=== PATIENT | male | born 1945 | race Caucasian/White ===

== ENCOUNTER 2016-07-22 09:02 | Inpatient (IN) | payer OTHER ==
[2016-07-19 16:28] LABS: Urine RBC None Seen /hpf (0 - 3)
[2016-07-19 16:49] LABS: Urine Bilirubin Negative (Negative); Urine Blood Negative /uL (Negative); Urine Color Yellow (Yellow); Urine Ketone Negative (Negative); Urine Nitrite Negative (Negative); Urine Urobilinogen Normal (Negative)
[2016-07-19 16:51] LABS: Urine Glucose 4+ mg/dL (Normal)
[2016-07-19 17:02] LABS: INR 1.03 (0.9-1.15); Partial Thromboplastin Time 27.1 sec (22.64-33.71); Prothrombin Time 11.1 sec (9.37-12.3)
[2016-07-19 17:07] LABS: Albumin 3.9 g/dL (3.4-5.0); BUN/Creatinine Ratio 10.9; Bilirubin, Total 0.8 mg/dL (0.2-1.0); Calcium 9.3 mg/dL (8.5-10.1); Potassium 4.1 mmol/L (3.5-5.1)
[2016-07-19 17:47] LABS: Basophils # (auto) 0 uL; Basophils % (auto) 0.4 % (0.0-2.0); DEFINITIVE VIEW TRANSMISSION; Eosinophils # (auto) 0.3 uL; Eosinophils % (auto) 3.7 % (0.0-7.0); Hematocrit 38.2 % (41.0-53.0); Lymphocytes # (auto) 1.9 uL; Mean Corpuscular Hemoglobin 25.1 pg (28.0-32.0); Mean Corpuscular Hgb Conc. 31.4 g/dL (32.0-36.0); Mean Corpuscular Volume 79.8 fL (80.0-100.0); Monocytes # (auto) 0.9 uL; Monocytes % (auto) 9.3 % (0.0-12.0); Neutrophils # (auto) 6.1 uL; Neutrophils % (auto) 65.6 % (37.0-80.0); Platelet Count (auto) 380 10^3/uL (140-450); Red Cell Distribution Width 17.7 % (11.6-16.0); White Blood Cell 9.3 10^3/uL (4.4-10.8)
[~2016-07-22] VITALS: Ht 172.7 cm; Wt 106.5 kg
[~2016-07-22 09:02] MED LIST: ATOR40TA52 PO; CANA300T OR; CIPR-217 PO; FESO4TAB PO; GLIP-116 PO; LISI-646 PO; METF-312 PO; OMEP20CA5 PO; TAMS0.4C36 PO
[2016-07-22] MEDS ORDERED: ceFAZolin 1GM/50ML D5W 50 ML IV ONE (11:10)
[2016-07-22] MEDS ORDERED: fentaNYL CITRATE 100 MCG/2 ML VL ONE (12:10)
[2016-07-22] MEDS ORDERED: PROPOFOL 10 MG/ML 20 ML IV ONE (12:10)
[2016-07-22] MEDS ORDERED: MIDAZOLAM HCL 1MG/1ML-2 ML VIAL ONE (12:11)
[2016-07-22] MEDS ORDERED: ePHEDrine SULFATE 50 MG/ML AMP IV PRN (13:30)
[2016-07-22] MEDS ORDERED: ONDANSETRON HCL 4 MG/2 ML VIAL IV ONE (13:30)
[2016-07-22] MEDS ORDERED: hydrALAZINE HCL 20 MG/ML VL IV PRN (13:30)
[2016-07-22] MEDS ORDERED: BELLADONNA ALKAL/OPIUM (16.2/30MG) RECT SUPP PR ONE (13:45)
[2016-07-22] MEDS ORDERED: BELLADONNA ALKAL/OPIUM (16.2/30MG) RECT SUPP PR PRN (14:30)
[2016-07-22] MEDS: MORPHINE SULF INJ 2 MG/ML SYRINGE 1ML IV PRN ×2 (14:30→15:00)
[2016-07-22 16:34] VITALS: BP 105/75
[2016-07-22] MEDS ORDERED: ONDANSETRON HCL 4 MG/2 ML VIAL IV PRN (17:45)
[2016-07-22] MEDS: HYDROcodone-ACET 10/325MG TAB PO PRN (18:29)
[2016-07-22] MEDS: LACTATED RINGER'S 1,000 ML IV SCH (18:34)
[2016-07-22 20:00] VITALS: BP 121/69
[2016-07-22 22:00] VITALS: BP 121/69
[2016-07-23] MEDS: LACTATED RINGER'S 1,000 ML IV SCH ×2 (01:03→10:19)
[2016-07-23 05:34] VITALS: BP 108/51
[2016-07-23 06:26] LABS: Basophils # (auto) 0 uL; Basophils % (auto) 0.3 % (0.0-2.0); DEFINITIVE VIEW TRANSMISSION; Eosinophils # (auto) 0.3 uL; Hemoglobin 10.1 g/dL (13.5-17.5); Lymphocytes # (auto) 1.2 uL; Lymphocytes % (auto) 9.3 % (10.0-50.0); Mean Corpuscular Hemoglobin 25.2 pg (28.0-32.0); Mean Corpuscular Hgb Conc. 32.5 g/dL (32.0-36.0); Mean Corpuscular Volume 77.6 fL (80.0-100.0); Mean Platelet Volume 8.8 fL (7.4-10.4); Monocytes # (auto) 1.1 uL; Monocytes % (auto) 8.2 % (0.0-12.0); Neutrophils # (auto) 10.7 uL; Neutrophils % (auto) 80.2 % (37.0-80.0); Platelet Count (auto) 294 10^3/uL (140-450); Red Cell Distribution Width 18.3 % (11.6-16.0); White Blood Cell 13.3 10^3/uL (4.4-10.8)
[2016-07-23 09:00] VITALS: BP 138/83
[2016-07-23 12:08] VITALS: BP 138/83
[2016-07-23] MEDS ORDERED: ROCURONIUM 10MG/ML 10ML VIAL IV ONE (12:10)
[2016-07-23] MEDS: HYDROcodone-ACET 10/325MG TAB PO PRN (12:20)
[2016-07-23] MEDS ORDERED: GLYCOPYRROLATE 0.2 MG/ML 1ML VIAL IV ONE (12:29)
[2016-07-23] MEDS ORDERED: NEOSTIGMINE 1 MG/ML INJ (10mg/10ML VIAL) IV ONE (12:29)
== END 2016-07-23 12:30 | disposition home or self-care (01) | DRG 713 ==
LOC: SUR 09:02 → WEST WING 09:03
PROVIDERS: ADMIT Urology; ATTEND Urology
PROC: 0VB03ZX Excision of Prostate, Percutaneous Approach, Diagnostic (ICD-10-PCS; 2016-07-22)
PROC: 0VT08ZZ Resection of Prostate, Via Natural or Artificial Opening Endoscopic (ICD-10-PCS; principal; 2016-07-22 12:10)
DX: N40.1 Benign prostatic hyperplasia with lower urinary tract symptoms (principal); N13.8 Other obstructive and reflux uropathy
CPT/HCPCS: 36415; 80053; 81001; 82962; 83036; 85025; 85610; 85730; J0690; J2250; J2704